=== PATIENT | male | born 1955 | race Caucasian/White ===

== ENCOUNTER → 2016-08-23 | Outpatient (CLI) | payer BC ==
--- NOTE | 2016-08-23 21:05 | DI ---
XR CXR 2VW PA/LAT,08/23/2016 11:36 AM: Clinical History: Asthma Previous Exam: November 16, 2014 Findings: PA and lateral views of the chest are obtained, and demonstrate infiltrates within the right middle l obe and the left lower lobe posteriorly. Skeletal structures are unremarkable. The cardiomediastinum is also unremarkable. Impression: Multifocal pneumonia within the right middle lobe and the left lower lobe.
== END ==
LOC: RAD 11:46
DX: J45.909 Unspecified asthma, uncomplicated (principal); J18.9 Pneumonia, unspecified organism; F17.210 Nicotine dependence, cigarettes, uncomplicated
CPT/HCPCS: 71020

== ENCOUNTER 2016-09-13 11:41 | Inpatient (IN) | payer BC ==
[2016-09-13] MEDS ORDERED: ONDANSETRON 4 MG/2 ML VIAL IVP PRN (12:11)
[2016-09-13] MEDS ORDERED: ACETAMINOPHEN 325 MG TABLET PO PRN (13:00)
[2016-09-13] MEDS: Levofloxacin 750mg (Premix) 750 MG in Dextrose 1 BAG IV SCH (14:01)
[2016-09-13] MEDS: NORMAL SALINE 10 ML SYRINGE FLUSH IVP PRN ×2 (14:01→23:08)
[2016-09-13] MEDS: OMEPRAZOLE 20 MG CAPSULE PO SCH ×2 (14:02→14:08)
[2016-09-13 14:17] LABS: BASOPHILS # (AUTO) 0 10*3/UL; BASOPHILS % (AUTO) 0 % (0-1); EOSINOPHILS % (AUTO) 0 % (0-8); HEMATOCRIT 45.3 % (42.0-52.0); HEMOGLOBIN 15.3 g/dL (14.0-18.0); IMM GRAN % (AUTO) 0.1 % (0-5); IMM GRAN# (AUTO) 0.01 10*3/UL; LYMPHOCYTES # (AUTO) 0.29 10*3/uL; LYMPHOCYTES % (AUTO) 4.3 % (10-50); MEAN CORPUSCULAR HEMOGLOBIN 29.9 PG (27-31); MEAN CORPUSCULAR HGB CONC 33.8 g/dL (33-37); MEAN PLATELET VOLUME 8.8 FL (7.4-12.2); MONOCYTES # (AUTO) 0.27 10*3/UL (0.3-0.8); NEUTROPHILS # (AUTO) 6.17 10*3/UL; NEUTROPHILS % (AUTO) 91.6 % (50-80); RDW COEFFICIENT OF VARIATION 14.2 % (11.5-14.5); RED BLOOD COUNT 5.11 10^6/uL (4.70-6.10); WHITE BLOOD COUNT 6.74 10^3/uL (4.8-10.8)
[2016-09-13 14:19] LABS: BLOOD UREA NITROGEN 16 mg/dL (7-22); BUN/CREATININE RATIO 17.77 (6-20); CALCIUM 9.8 mg/dL (8.7-10.7); CHLORIDE 98 meq/L (98-112); CREATININE 0.9 mg/dL (0.70-1.50); EST GLOMERULAR FILTRATION > 60 (>60 ml/min/1.73m(2)); GLUCOSE 140 mg/dL (78-110); POTASSIUM 4.5 meq/L (3.8-5.2); SODIUM 136 meq/L (135-145)
[2016-09-13 14:22] LABS: PLATELET MORPHOLOGY COMMENT NORMAL MORPHOLOGY (NORM)
[2016-09-13] MEDS: ALBUTEROL SULFATE 2.5 MG/3 ML NEB PRN ×2 (14:45→18:36)
[2016-09-13] MEDS ORDERED: Influenza 16-17 Vaccine(4yrs+) 45 MCG/0.5 ML SYRINGE IM ONE (15:05)
--- NOTE | 2016-09-13 15:12 | PDOC ---
History and Physical - History of Present Illness Date and Time of Service: 09/13/2016, 1510 Chief Complaint: Shortness of breath History of Present Illness: This is a very pleasant 61-year-old male who smokes intermittently, has GERD, hypothyroidism, and probable COPD. He has had shortness of breath since . He states that he saw Dr. Rowe a few times this month, and was placed on antibiotics (Ceftin) and steroids for a pneumonia and responded well in terms of improvements in his shortness of breath. However since titrating off of prednisone, the shortness breath has returned and is persistent. No chest pain. Has had intermittent fevers. Coughs and occasionally has a productive cough. He has never had anything like this happen before. He notes that he feels better when he is upright and sitting upright and has noted orthopnea at home and in fact often times now is going up to his recliner to sleep. He denies any prior history of congestive heart failure. He presented again to the clinic today, and it was felt that it would be best for the patient to be admitted due to persistent shortness of breath for workup. The patient reluctantly agreed to come to the hospital, short of breath on my examination, but is afebrile at this time. Past Medical History Medical History: 1. COPD. 2. GERD. 3. Hypothyroidism Surgical History: 1. Arthroscopic knee surgery. 2. Vasectomy Pertinent Family History: States his father of cancer. Past Social History: . Has children described as healthy, 2. Smokes intermittently. Does not drink alcohol often. Works for the [employer]. Tobacco Use: Former Smoker Substance Use Type: Marijuana Alcohol Use: Occasionally Medication / Allergies Home Medications: Home Medications Medication Instructions Recorded Confirmed Type Ascorbate Calcium [Vitamin C] 1 tab PO DAILY tab 07/01/13 10/20/14 History Multivitamin [Multivitamins] 1 tab PO DAILY tab 07/01/13 10/20/14 History Cholecalciferol (Vitamin D3) 2 tab PO QD #60 tab 09/20/14 10/20/14 Clinic [Vitamin D3] Sildenafil Citrate [Viagra] 1 tab PO DAILY PRN #10 tab 09/23/14 10/20/14 Clinic Budesonide/Formoterol Fumarate 2 puff INH BID #1 inh 03/01/15 Clinic [Symbicort] Albuterol Sulfate [Proair Hfa] 2 puff INH q 2 hours #1 inhaler 10/24/15 [facility] Levothyroxine Sodium 1 tab PO QD #90 tab 08/20/16 [facility] Omeprazole 1 cap PO QD #90 cap 08/20/16 [facility] predniSONE Tab [Deltasone Tab] 3 tab PO QD #100 tab 09/12/16 Clinic Allergies/Adverse Reactions: Allergies Allergy/AdvReac Type Severity Reaction Status Date / Time No Known Drug Allergies Allergy NOT Verified 09/13/16 13:11 APPLICABLE Review of Systems - Review of Systems All Systems: Reviewed & No Additional Complaints Except as Stated (I did a 12 point review of systems and it was negative other than that discussed in history present illness and that discussed below.) - Constitutional Constitutional: REPORTS: Fever/Chills - Respiratory Respiratory: REPORTS: Cough, Sputum - Cardiovascular Cardiovascular: REPORTS: Orthopnea - Neurological Neurologic: REPORTS: Headache (At any occasional headaches with the shortness breath here recently.) Exam - Vitals Vital Signs: Vital Signs Temperature 97.4 F Temperature Source Temporal Artery Scan Pulse Rate [Pulse Oximeter] 96 Respiratory Rate 22 Blood Pressure [Left Arm] 121/87 Pulse Ox 91 Oxygen Delivery Method Room Air Height 6 ft Weight 188 lb 6.4 oz - General General Appearance: POSITIVE: Cooperative, Mild Distress (Was breathing at a more labored rate. Had to sit up in chair to be comfortable.) - Head Head Exam: POSITIVE: Normal Inspection, Normocephalic, Atraumatic - Eye Eye Exam: POSITIVE: No Scleral Icterus - ENT ENT Exam: POSITIVE: Mucous Membranes Moist - Neck Neck Exam: POSITIVE: Normal Inspection, No Tenderness, No Thyromegaly - Respiratory Respiratory Exam: POSITIVE: Normal to Percussion and Palpation, Decreased Breath Sounds, Wheezes, Coarse Breath Sounds - Cardiovascular Cardiovascular Exam: POSITIVE: RRR, No Murmur, No Clicks, No Gallops, No Rubs, No JVD - GI/Abdominal GI/Abdominal Exam: POSITIVE: Normal Bowel Sounds, Non Tender, Non Distended, Soft - Rectal Rectal Exam: POSITIVE: Deferred - External Exam: POSITIVE: Deferred Exam: POSITIVE: Deferred - Extremities Extremities Exam: POSITIVE: No Edema Present, No Cyanosis Present, Clubbing Present (Clubbing in the digits is noted.) - Back Back Exam: POSITIVE: Normal Inspection, No CVA Tenderness - Neurological Neurological Exam: POSITIVE: Alert, Oriented x 3, No Facial Droop, Speech Intact / Clear, Moves All Extremities Equally - Psychiatric Psychiatric Exam: POSITIVE: Normal Affect, Normal Mood Results - Labs CBC and BMP: 09/13/16 14:08 09/13/16 14:08 Labs - Last 24 Hours: Laboratory Results 09/13/16 Range/Units 14:08 WBC 6.74 (4.8-10.8) 10^3/uL RBC 5.11 (4.70-6.10) 10^6/uL Hgb 15.3 (14.0-18.0) g/dL Hct 45.3 (42.0-52.0) % MCV 88.6 (80-90) FL MCH 29.9 (27-31) PG MCHC 33.8 (33-37) g/dL RDW Std Deviation 45.6 (39-50) fL RDW Coeff of Jeana 14.2 (11.5-14.5) % Plt Count 162 (140-350) 10*3/uL MPV 8.8 (7.4-12.2) FL Immature Gran % (Auto) 0.1 (0-5) % Neut % (Auto) 91.6 H (50-80) % Lymph % (Auto) 4.3 L (10-50) % [place] % (Auto) 4.0 L (5-15) % Eos % (Auto) 0 (0-8) % Baso % (Auto) 0 (0-1) % Immature Gran # (Auto) 0.01 10*3/UL Neut # (Auto) 6.17 10*3/UL Lymph # (Auto) 0.29 10*3/uL [place] # (Auto) 0.27 L (0.3-0.8) 10*3/UL Eos # (Auto) 0 10*3/UL Baso # (Auto) 0 10*3/UL WBC Morphology Comment Normal morphology (NORM) Plt Morphology Comment Normal morphology (NORM) RBC Morph Comment Normal morphology (NORM) Sodium 136 (135-145) meq/L Potassium 4.5 (3.8-5.2) meq/L Chloride 98 (98-112) meq/L Carbon Dioxide 24 (23-33) meq/L Anion Gap 14 (5-20) BUN 16 (7-22) mg/dL Creatinine 0.9 (0.70-1.50) mg/dL Estimated GFR > 60 (>60 ml/min/1.73m(2)) BUN/Creatinine Ratio 17.77 (6-20) Glucose 140 H (78-110) mg/dL Calculated Osmolality 284.0 (267-292) mOsm/kg Calcium 9.8 (8.7-10.7) mg/dL Lactic acid level is pending. - Imaging Status: Image Pending (I have ordered a CT scan of the chest to look for pulmonary emboli, although this may be less likely, also to redefine pneumonia and get a better picture of the extent of the COPD. An echocardiogram is pending.) Assessment and Plan - Patient Problems (1) Respiratory insufficiency Current Visit: Yes Status: Acute (2) Shortness of breath Current Visit: Yes Status: Acute (3) Hypothyroidism Current Visit: Yes Status: Acute Qualifiers: Hypothyroidism type: acquired Qualified Description: Acquired hypothyroidism Qualifier Code(s): (E03.9) Hypothyroidism, unspecified (4) GERD (gastroesophageal reflux disease) Current Visit: Yes Status: Acute - Assessment / Plan Additional Assessment/Plan Details: Admit the patient. Get CT scan to look for recurrent pneumonia, pulmonary emboli, and extent of COPD. Start antibiotics and steroids for now. Get echocardiogram with orthopnea. Also get EKG. Check labs. Oxygen if indicated. Albuterol via nebulizer instead of inhaler. Vaccines for influenza and Pneumovax if indicated. Smoking cessation education. Plan above discussed with patient. He agrees.
[2016-09-13] MEDS ORDERED: PNEUMOCOCCAL 23 VACCINE 25 MCG/0.5 ML VIAL IM SCH (15:15)
--- NOTE | 2016-09-13 16:55 | DI ---
CT ANGIOGRAM OF THE CHEST, 09/13/2016 12:14 PM : Clinical History: Pneumonia. Shortness of breath. Previous Exam: None at this facility. Scans are performed from the base of the neck to the lower lung bases following IV administration of 70 mL of Isovue 300. Proprietary automated bolus tracking software was not used to verify the timing of the injection. The base of the neck and thoracic inlet are normal. There are no abnormal axillary, supraclavicular, mediastinal, or hilar nodes. The heart is normal. The pulmonary arteries are normal. There is no pulm onary arterial hypertension. There is no evidence of pulmonary embolism. There are patchy infiltrates in the medial segment of the right middle lobe and in the lateral basal segment of the left lower lo be. No pleural effusions are noted. There are no pulmonary nodules. The adrenal glands, spleen and th e visualized portions of the liver and pancreas are normal. READIN. Normal CTA of the chest. There are no pulmonary emboli. 2. There are patchy infiltrates in the right middle lobe and the left lower lobe consistent with the diagnosis of pneumonia.
--- NOTE | 2016-09-13 17:20 | EKG ---
[address] [address] Measurements Intervals [place] Rate: 85 P: 60 VT: 134 QRS: 43 QRSD: 92 T: 60 QT: 352 QTc: 394 Interpretive Statements SINUS RHYTHM No previous ECG available for comparison Electronically Signed On 09-14-16 08:52:48 MST by Ryan Muir MD [id number]
[2016-09-13] MEDS: methylPREDNISolone 125 MG/2 ML VIAL IVP SCH ×2 (17:43→23:07)
[2016-09-13] MEDS: FLUTICASONE/SALMETEROL 500/50 UD INHALER INH SCH (18:39)
[2016-09-13] MEDS ORDERED: Non-Formulary Drug (Budesonide/Formoterol Fumarate [Symbicort] 2 PUFF) INH SCH (21:00)
[2016-09-14 05:03] LABS: BASOPHILS # (AUTO) 0 10*3/UL; BASOPHILS % (AUTO) 0 % (0-1); EOSINOPHILS % (AUTO) 0 % (0-8); HEMOGLOBIN 14.8 g/dL (14.0-18.0); IMM GRAN % (AUTO) 0 % (0-5); IMM GRAN# (AUTO) 0 10*3/UL; LYMPHOCYTES # (AUTO) 0.25 10*3/uL; LYMPHOCYTES % (AUTO) 5.5 % (10-50); MEAN CORPUSCULAR HEMOGLOBIN 29.5 PG (27-31); MEAN CORPUSCULAR HGB CONC 33.6 g/dL (33-37); MONOCYTES % (AUTO) 2.2 % (5-15); NEUTROPHILS # (AUTO) 4.21 10*3/UL; NEUTROPHILS % (AUTO) 92.3 % (50-80); RED BLOOD COUNT 5.02 10^6/uL (4.70-6.10); WHITE BLOOD COUNT 4.56 10^3/uL (4.8-10.8)
[2016-09-14 05:10] LABS: BLOOD UREA NITROGEN 16 mg/dL (7-22); CALCIUM 9.6 mg/dL (8.7-10.7); CHLORIDE 99 meq/L (98-112); CREATININE 0.8 mg/dL (0.70-1.50); EST GLOMERULAR FILTRATION > 60 (>60 ml/min/1.73m(2)); GLUCOSE 170 mg/dL (78-110); PLATELET MORPHOLOGY COMMENT NORMAL MORPHOLOGY (NORM); POTASSIUM 4.5 meq/L (3.8-5.2); SODIUM 137 meq/L (135-145)
[2016-09-14] MEDS: LEVOTHYROXINE 125 MCG TABLET PO SCH (05:31)
[2016-09-14] MEDS: NORMAL SALINE 10 ML SYRINGE FLUSH IVP PRN ×2 (05:31→23:13)
[2016-09-14] MEDS: methylPREDNISolone 125 MG/2 ML VIAL IVP SCH ×4 (05:31→23:12)
[2016-09-14] MEDS: ALBUTEROL SULFATE 2.5 MG/3 ML NEB PRN ×4 (06:25→18:31)
[2016-09-14] MEDS: FLUTICASONE/SALMETEROL 500/50 UD INHALER INH SCH ×2 (06:26→18:30)
[2016-09-14] MEDS: ENOXAPARIN SODIUM 40 MG/0.4 ML SYRINGE SUBCUT SCH (08:18)
[2016-09-14] MEDS: OMEPRAZOLE 20 MG CAPSULE PO SCH (08:19)
[2016-09-14] MEDS: Levofloxacin 750mg (Premix) 750 MG in Dextrose 1 BAG IV SCH (14:05)
--- NOTE | 2016-09-14 14:10 | PDOC(PROG) ---
Interval History: Doing well appears and she is still coughing very tight with audible wheezes Objective : Data - Labs CBC and BMP: 09/14/16 04:36 09/14/16 04:36 Labs - Last 24 Hours: Laboratory Results 09/13/16 09/13/16 09/14/16 Range/Units 14:08 17:19 04:36 WBC 6.74 4.56 L (4.8-10.8) 10^3/uL RBC 5.11 5.02 (4.70-6.10) 10^6/uL Hgb 15.3 14.8 (14.0-18.0) g/dL Hct 45.3 44.0 (42.0-52.0) % MCV 88.6 87.6 (80-90) FL MCH 29.9 29.5 (27-31) PG MCHC 33.8 33.6 (33-37) g/dL RDW Std Deviation 45.6 44.5 (39-50) fL RDW Coeff of Jeana 14.2 14.0 (11.5-14.5) % Plt Count 162 163 (140-350) 10*3/uL MPV 8.8 9.0 (7.4-12.2) FL Immature Gran % (Auto) 0.1 0 (0-5) % Neut % (Auto) 91.6 H 92.3 H (50-80) % Lymph % (Auto) 4.3 L 5.5 L (10-50) % [place] % (Auto) 4.0 L 2.2 L (5-15) % Eos % (Auto) 0 0 (0-8) % Baso % (Auto) 0 0 (0-1) % Immature Gran # (Auto) 0.01 0 10*3/UL Neut # (Auto) 6.17 4.21 10*3/UL Lymph # (Auto) 0.29 0.25 10*3/uL [place] # (Auto) 0.27 L 0.10 L (0.3-0.8) 10*3/UL Eos # (Auto) 0 0 10*3/UL Baso # (Auto) 0 0 10*3/UL WBC Morphology Comment Normal morphology Normal morphology (NORM) Plt Morphology Comment Normal morphology Normal morphology (NORM) RBC Morph Comment Normal morphology Normal morphology (NORM) Sodium 136 137 (135-145) meq/L Potassium 4.5 4.5 (3.8-5.2) meq/L Chloride 98 99 (98-112) meq/L Carbon Dioxide 24 28 (23-33) meq/L Anion Gap 14 10 (5-20) BUN 16 16 (7-22) mg/dL Creatinine 0.9 0.8 (0.70-1.50) mg/dL Estimated GFR > 60 > 60 (>60 ml/min/1.73m(2)) BUN/Creatinine Ratio 17.77 20.00 (6-20) Glucose 140 H 170 H (78-110) mg/dL Calculated Osmolality 284.0 288.0 (267-292) mOsm/kg Lactic Acid 1.5 (0.70-2.10) MMOL/L Calcium 9.8 9.6 (8.7-10.7) mg/dL Objective : Exam - General General Appearance: Cooperative - Respiratory Respiratory Exam: Decreased Breath Sounds, Wheezes, Coarse Breath Sounds - Cardiovascular Cardiovascular Exam: RRR, No Murmur, No Clicks, No Gallops - Extremities Extremities Exam: No Clubbing Present, No Edema Present - Neurological Neurological Exam: Alert, Oriented x 3 Assessment and Plan - Patient Problems (1) GERD (gastroesophageal reflux disease) Current Visit: Yes Status: Acute (2) Hypothyroidism Current Visit: Yes Status: Acute Qualifiers: Hypothyroidism type: acquired Qualified Description: Acquired hypothyroidism Qualifier Code(s): (E03.9) Hypothyroidism, unspecified (3) Pneumonia Current Visit: Yes Status: Acute (4) COPD exacerbation Current Visit: Yes Status: Acute - Assessment / Plan Additional Assessment/Plan Details: #1 pneumonia/with COPD exacerbationcontinue IV Levaquin and IV steroids dual nebs and inhalers patient therefore needs to be in the hospital for the next 2 days still very tight and audible wheezing no PE. Echo is still pending for his orthopnea we'll check troponins #2 hypothyroidism continue replacement #3 and hydration continue IV fluids
[2016-09-15] MEDS: methylPREDNISolone 125 MG/2 ML VIAL IVP SCH ×4 (05:36→23:48)
[2016-09-15] MEDS: LEVOTHYROXINE 125 MCG TABLET PO SCH (05:36)
[2016-09-15 05:52] LABS: BASOPHILS # (AUTO) 0 10*3/UL; BASOPHILS % (AUTO) 0 % (0-1); EOSINOPHILS % (AUTO) 0 % (0-8); HEMOGLOBIN 14.4 g/dL (14.0-18.0); IMM GRAN % (AUTO) 0.1 % (0-5); IMM GRAN# (AUTO) 0.01 10*3/UL; LYMPHOCYTES # (AUTO) 0.32 10*3/uL; LYMPHOCYTES % (AUTO) 2.8 % (10-50); MEAN CORPUSCULAR HEMOGLOBIN 30.8 PG (27-31); MEAN CORPUSCULAR HGB CONC 34.3 g/dL (33-37); MONOCYTES # (AUTO) 0.51 10*3/UL (0.3-0.8); MONOCYTES % (AUTO) 4.4 % (5-15); NEUTROPHILS # (AUTO) 10.77 10*3/UL; NEUTROPHILS % (AUTO) 92.7 % (50-80); RDW COEFFICIENT OF VARIATION 14.1 % (11.5-14.5); RED BLOOD COUNT 4.67 10^6/uL (4.70-6.10); WHITE BLOOD COUNT 11.61 10^3/uL (4.8-10.8)
[2016-09-15 05:59] LABS: ASPARTATE AMINO TRANSFERASE 24 IU/L (21-57); BILIRUBIN,TOTAL 0.3 mg/dL (0.3-1.2); BLOOD UREA NITROGEN 19 mg/dL (7-22); BUN/CREATININE RATIO 23.75 (6-20); CALCIUM 9.7 mg/dL (8.7-10.7); CHLORIDE 100 meq/L (98-112); CREATININE 0.8 mg/dL (0.70-1.50); EST GLOMERULAR FILTRATION > 60 (>60 ml/min/1.73m(2)); GLUCOSE 135 mg/dL (78-110); POTASSIUM 4.5 meq/L (3.8-5.2); SODIUM 138 meq/L (135-145); TOTAL PROTEIN 6.2 g/dL (6.1-8.0)
[2016-09-15] MEDS: ALBUTEROL SULFATE 2.5 MG/3 ML NEB PRN ×4 (06:21→18:37)
[2016-09-15] MEDS: FLUTICASONE/SALMETEROL 500/50 UD INHALER INH SCH ×2 (06:22→18:37)
[2016-09-15 06:30] LABS: PLATELET MORPHOLOGY COMMENT NORMAL MORPHOLOGY (NORM)
[2016-09-15] MEDS: OMEPRAZOLE 20 MG CAPSULE PO SCH (06:31)
[2016-09-15] MEDS: ENOXAPARIN SODIUM 40 MG/0.4 ML SYRINGE SUBCUT SCH (08:31)
[2016-09-15] MEDS ORDERED: LORazepam 2 MG/1 ML VIAL IVP PRN (09:01)
--- NOTE | 2016-09-15 11:23 | PDOC(PROG) ---
Interval History: There were little better today less wheezing less tightness Objective : Data - Labs CBC and BMP: 09/15/16 05:16 09/15/16 05:16 Labs - Last 24 Hours: Laboratory Results 09/14/16 09/15/16 09/15/16 Range/Units 14:27 05:16 10:22 WBC 11.61 H (4.8-10.8) 10^3/uL RBC 4.67 L (4.70-6.10) 10^6/uL Hgb 14.4 (14.0-18.0) g/dL Hct 42.0 (42.0-52.0) % MCV 89.9 (80-90) FL MCH 30.8 (27-31) PG MCHC 34.3 (33-37) g/dL RDW Std Deviation 44.9 (39-50) fL RDW Coeff of Jeana 14.1 (11.5-14.5) % Plt Count 181 (140-350) 10*3/uL MPV 9.0 (7.4-12.2) FL Immature Gran % (Auto) 0.1 (0-5) % Neut % (Auto) 92.7 H (50-80) % Lymph % (Auto) 2.8 L (10-50) % [place] % (Auto) 4.4 L (5-15) % Eos % (Auto) 0 (0-8) % Baso % (Auto) 0 (0-1) % Immature Gran # (Auto) 0.01 10*3/UL Neut # (Auto) 10.77 10*3/UL Lymph # (Auto) 0.32 10*3/uL [place] # (Auto) 0.51 (0.3-0.8) 10*3/UL Eos # (Auto) 0 10*3/UL Baso # (Auto) 0 10*3/UL WBC Morphology Comment Normal morphology (NORM) Plt Morphology Comment Normal morphology (NORM) RBC Morph Comment Normal morphology (NORM) VBG pH 7.46 H (7.32-7.42) VBG pCO2 31 L (45-55) mmHg VBG HCO3 22 (22-26) mmol/L VBG Base Excess -1 (-2-2) MMOL/L Sodium 138 (135-145) meq/L Potassium 4.5 (3.8-5.2) meq/L Chloride 100 (98-112) meq/L Carbon Dioxide 26 (23-33) meq/L Anion Gap 12 (5-20) BUN 19 (7-22) mg/dL Creatinine 0.8 (0.70-1.50) mg/dL Estimated GFR > 60 (>60 ml/min/1.73m(2)) BUN/Creatinine Ratio 23.75 H (6-20) Glucose 135 H (78-110) mg/dL Calculated Osmolality 289.0 (267-292) mOsm/kg Calcium 9.7 (8.7-10.7) mg/dL Total Bilirubin 0.3 (0.3-1.2) mg/dL AST 24 (21-57) IU/L ALT 33 (21-72) IU/L Alkaline Phosphatase 70 (38-126) IU/L Troponin I < 0.012 (< 0.040) ng/mL Total Protein 6.2 (6.1-8.0) g/dL Albumin 3.6 (3.5-4.8) g/dL Globulin 2.6 (2.50-4.10) g/dL Albumin/Globulin Ratio 1.30 (1.3-2.0) mg/g Objective : Exam - General General Appearance: Cooperative - Head Head Exam: Normal Inspection - Respiratory Additional Respiratory Exam Details: Less wheezing less tightness better air movement still coarse lung sounds bilaterally - Cardiovascular Cardiovascular Exam: RRR, No Murmur, No Clicks - GI/Abdominal GI/Abdominal Exam: Normal Bowel Sounds, Non Tender, Soft - Extremities Extremities Exam: No Clubbing Present, No Edema Present Assessment and Plan - Patient Problems (1) GERD (gastroesophageal reflux disease) Current Visit: Yes Status: Acute (2) Hypothyroidism Current Visit: Yes Status: Acute Qualifiers: Hypothyroidism type: acquired Qualified Description: Acquired hypothyroidism Qualifier Code(s): (E03.9) Hypothyroidism, unspecified (3) Pneumonia Current Visit: Yes Status: Acute (4) COPD exacerbation Current Visit: Yes Status: Acute - Assessment / Plan Additional Assessment/Plan Details: #1 pneumonia/with COPD exacerbationcontinue IV Levaquin and IV steroids dual nebs and inhalers patient therefore needs to be in the hospital for the next 2- 3 days patient still very short of breath VBG within normal limits. I had a cough from Dr. Stratton about patient's echo which she sees no acute findings waiting for final result #2 hypothyroidism continue replacement #3 and hydration continue IV fluids
[2016-09-15] MEDS: Levofloxacin 750mg (Premix) 750 MG in Dextrose 1 BAG IV SCH (13:59)
[2016-09-15] MEDS: NORMAL SALINE 10 ML SYRINGE FLUSH IVP PRN (17:15)
[2016-09-16 05:30] LABS: BASOPHILS # (AUTO) 0.01 10*3/UL; BASOPHILS % (AUTO) 0.1 % (0-1); EOSINOPHILS % (AUTO) 0 % (0-8); HEMATOCRIT 40.5 % (42.0-52.0); HEMOGLOBIN 13.7 g/dL (14.0-18.0); IMM GRAN % (AUTO) 0.2 % (0-5); IMM GRAN# (AUTO) 0.03 10*3/UL; LYMPHOCYTES # (AUTO) 0.38 10*3/uL; LYMPHOCYTES % (AUTO) 2.7 % (10-50); MEAN CORPUSCULAR HEMOGLOBIN 29.8 PG (27-31); MEAN CORPUSCULAR HGB CONC 33.8 g/dL (33-37); MEAN PLATELET VOLUME 8.8 FL (7.4-12.2); MONOCYTES # (AUTO) 0.32 10*3/UL (0.3-0.8); MONOCYTES % (AUTO) 2.3 % (5-15); NEUTROPHILS # (AUTO) 13.43 10*3/UL; NEUTROPHILS % (AUTO) 94.7 % (50-80); RDW COEFFICIENT OF VARIATION 14.1 % (11.5-14.5); RED BLOOD COUNT 4.59 10^6/uL (4.70-6.10); WHITE BLOOD COUNT 14.17 10^3/uL (4.8-10.8)
[2016-09-16 05:38] LABS: ASPARTATE AMINO TRANSFERASE 28 IU/L (21-57); BILIRUBIN,TOTAL 0.3 mg/dL (0.3-1.2); BLOOD UREA NITROGEN 20 mg/dL (7-22); CALCIUM 9.1 mg/dL (8.7-10.7); CHLORIDE 102 meq/L (98-112); CREATININE 0.8 mg/dL (0.70-1.50); EST GLOMERULAR FILTRATION > 60 (>60 ml/min/1.73m(2)); GLUCOSE 153 mg/dL (78-110); SODIUM 137 meq/L (135-145); TOTAL PROTEIN 5.8 g/dL (6.1-8.0)
[2016-09-16 05:43] LABS: PLATELET MORPHOLOGY COMMENT NORMAL MORPHOLOGY (NORM)
[2016-09-16] MEDS: methylPREDNISolone 125 MG/2 ML VIAL IVP SCH ×2 (05:46→11:40)
[2016-09-16] MEDS: LEVOTHYROXINE 125 MCG TABLET PO SCH (05:46)
[2016-09-16] MEDS: ALBUTEROL SULFATE 2.5 MG/3 ML NEB PRN ×4 (06:50→19:24)
[2016-09-16] MEDS: FLUTICASONE/SALMETEROL 500/50 UD INHALER INH SCH ×2 (06:56→19:25)
[2016-09-16] MEDS: OMEPRAZOLE 20 MG CAPSULE PO SCH (07:23)
[2016-09-16] MEDS: ENOXAPARIN SODIUM 40 MG/0.4 ML SYRINGE SUBCUT SCH (08:39)
[2016-09-16] MEDS: NORMAL SALINE 10 ML SYRINGE FLUSH IVP PRN (11:40)
--- NOTE | 2016-09-16 12:14 | DI ---
HISTORY: Follow up for worsening pneumonia. COMPARISON: 09/13/2016. TECHNIQUE: Multiple CT images were obtained through the chest without contrast. FINDINGS: Examination demonstrates stable multifocal air space disease, when compared to the previou s examination. IMPRESSION: 1. No significant change from prior evaluation. NOTIFICATION: The above report was sent to Nicol Dorado on 09/16/2016 at 02:22 PM EST.
--- NOTE | 2016-09-16 12:31 | PDOC(PROG) ---
Interval History: Doing much better today less wheezing he is not working as hard to breathe repeat CAT scan no change and no empyema Objective : Data - Labs CBC and BMP: 09/16/16 04:45 09/16/16 04:45 Labs - Last 24 Hours: Laboratory Results 09/16/16 Range/Units 04:45 WBC 14.17 H (4.8-10.8) 10^3/uL RBC 4.59 L (4.70-6.10) 10^6/uL Hgb 13.7 L (14.0-18.0) g/dL Hct 40.5 L (42.0-52.0) % MCV 88.2 (80-90) FL MCH 29.8 (27-31) PG MCHC 33.8 (33-37) g/dL RDW Std Deviation 44.6 (39-50) fL RDW Coeff of Jeana 14.1 (11.5-14.5) % Plt Count 181 (140-350) 10*3/uL MPV 8.8 (7.4-12.2) FL Immature Gran % (Auto) 0.2 (0-5) % Neut % (Auto) 94.7 H (50-80) % Lymph % (Auto) 2.7 L (10-50) % [place] % (Auto) 2.3 L (5-15) % Eos % (Auto) 0 (0-8) % Baso % (Auto) 0.1 (0-1) % Immature Gran # (Auto) 0.03 10*3/UL Neut # (Auto) 13.43 10*3/UL Lymph # (Auto) 0.38 10*3/uL [place] # (Auto) 0.32 (0.3-0.8) 10*3/UL Eos # (Auto) 0 10*3/UL Baso # (Auto) 0.01 10*3/UL WBC Morphology Comment Normal morphology (NORM) Plt Morphology Comment Normal morphology (NORM) RBC Morph Comment Normal morphology (NORM) Sodium 137 (135-145) meq/L Potassium 4.0 (3.8-5.2) meq/L Chloride 102 (98-112) meq/L Carbon Dioxide 25 (23-33) meq/L Anion Gap 10 (5-20) BUN 20 (7-22) mg/dL Creatinine 0.8 (0.70-1.50) mg/dL Estimated GFR > 60 (>60 ml/min/1.73m(2)) BUN/Creatinine Ratio 25.00 H (6-20) Glucose 153 H (78-110) mg/dL Calculated Osmolality 289.0 (267-292) mOsm/kg Calcium 9.1 (8.7-10.7) mg/dL Total Bilirubin 0.3 (0.3-1.2) mg/dL AST 28 (21-57) IU/L ALT 34 (21-72) IU/L Alkaline Phosphatase 71 (38-126) IU/L Total Protein 5.8 L (6.1-8.0) g/dL Albumin 3.3 L (3.5-4.8) g/dL Globulin 2.5 (2.50-4.10) g/dL Albumin/Globulin Ratio 1.30 (1.3-2.0) mg/g Objective : Exam - General General Appearance: Cooperative - Respiratory Additional Respiratory Exam Details: Still some expiratory wheezes at the bases but very mild and much improved compared to yesterday breath sounds are not his courses yesterday - Cardiovascular Cardiovascular Exam: RRR, No Murmur, No Clicks - GI/Abdominal GI/Abdominal Exam: Non Tender, Non Distended, Soft - Extremities Extremities Exam: No Clubbing Present, No Edema Present Assessment and Plan - Patient Problems (1) GERD (gastroesophageal reflux disease) Current Visit: Yes Status: Acute (2) Hypothyroidism Current Visit: Yes Status: Acute Qualifiers: Hypothyroidism type: acquired Qualified Description: Acquired hypothyroidism Qualifier Code(s): (E03.9) Hypothyroidism, unspecified (3) Pneumonia Current Visit: Yes Status: Acute (4) COPD exacerbation Current Visit: Yes Status: Acute - Assessment / Plan Additional Assessment/Plan Details: Pneumonia multilobar continue Levaquin 750 daily patient's show some improvement so not ready to be discharged patient tachycardic still some expiratory wheezing COPD exacerbation I will stop IV steroids start 30 mg prednisone Hypothyroidism continue replacement
[2016-09-16] MEDS: Levofloxacin 750mg (Premix) 750 MG in Dextrose 1 BAG IV SCH (13:59)
[2016-09-17 06:26] LABS: BASOPHILS # (AUTO) 0 10*3/UL; BASOPHILS % (AUTO) 0 % (0-1); EOSINOPHILS % (AUTO) 0 % (0-8); HEMATOCRIT 40.1 % (42.0-52.0); HEMOGLOBIN 12.9 g/dL (14.0-18.0); IMM GRAN % (AUTO) 0.4 % (0-5); IMM GRAN# (AUTO) 0.04 10*3/UL; LYMPHOCYTES # (AUTO) 0.49 10*3/uL; LYMPHOCYTES % (AUTO) 4.4 % (10-50); MEAN CORPUSCULAR HEMOGLOBIN 29.1 PG (27-31); MEAN CORPUSCULAR HGB CONC 32.2 g/dL (33-37); MEAN PLATELET VOLUME 8.6 FL (7.4-12.2); MONOCYTES # (AUTO) 0.55 10*3/UL (0.3-0.8); MONOCYTES % (AUTO) 4.9 % (5-15); NEUTROPHILS # (AUTO) 10.15 10*3/UL; NEUTROPHILS % (AUTO) 90.3 % (50-80); RDW COEFFICIENT OF VARIATION 14.5 % (11.5-14.5); RED BLOOD COUNT 4.43 10^6/uL (4.70-6.10); WHITE BLOOD COUNT 11.23 10^3/uL (4.8-10.8)
[2016-09-17 06:35] LABS: ASPARTATE AMINO TRANSFERASE 27 IU/L (21-57); BILIRUBIN,TOTAL 0.2 mg/dL (0.3-1.2); BLOOD UREA NITROGEN 18 mg/dL (7-22); CALCIUM 8.8 mg/dL (8.7-10.7); CHLORIDE 104 meq/L (98-112); CREATININE 0.8 mg/dL (0.70-1.50); EST GLOMERULAR FILTRATION > 60 (>60 ml/min/1.73m(2)); GLUCOSE 99 mg/dL (78-110); POTASSIUM 4.1 meq/L (3.8-5.2); SODIUM 141 meq/L (135-145); TOTAL PROTEIN 5.4 g/dL (6.1-8.0)
[2016-09-17] MEDS: FLUTICASONE/SALMETEROL 500/50 UD INHALER INH SCH ×2 (06:57→19:20)
[2016-09-17] MEDS: ALBUTEROL SULFATE 2.5 MG/3 ML NEB PRN ×4 (06:57→19:19)
[2016-09-17 07:14] LABS: PLATELET MORPHOLOGY COMMENT NORMAL MORPHOLOGY (NORM)
[2016-09-17] MEDS: OMEPRAZOLE 20 MG CAPSULE PO SCH (07:24)
[2016-09-17] MEDS: LEVOTHYROXINE 125 MCG TABLET PO SCH (07:25)
[2016-09-17] MEDS: ENOXAPARIN SODIUM 40 MG/0.4 ML SYRINGE SUBCUT SCH (09:20)
--- NOTE | 2016-09-17 11:04 | PDOC(PROG) ---
Interval History: No complaints this morning feeling better during is the first part of a stress test when he was laying down he had some shortness of breath which improved when he stood up no other complaints Objective : Data - Labs CBC and BMP: 09/17/16 05:25 09/17/16 05:25 Labs - Last 24 Hours: Laboratory Results 09/17/16 Range/Units 05:25 WBC 11.23 H (4.8-10.8) 10^3/uL RBC 4.43 L (4.70-6.10) 10^6/uL Hgb 12.9 L (14.0-18.0) g/dL Hct 40.1 L (42.0-52.0) % MCV 90.5 H (80-90) FL MCH 29.1 (27-31) PG MCHC 32.2 L (33-37) g/dL RDW Std Deviation 45.8 (39-50) fL RDW Coeff of Jeana 14.5 (11.5-14.5) % Plt Count 175 (140-350) 10*3/uL MPV 8.6 (7.4-12.2) FL Immature Gran % (Auto) 0.4 (0-5) % Neut % (Auto) 90.3 H (50-80) % Lymph % (Auto) 4.4 L (10-50) % [place] % (Auto) 4.9 L (5-15) % Eos % (Auto) 0 (0-8) % Baso % (Auto) 0 (0-1) % Immature Gran # (Auto) 0.04 10*3/UL Neut # (Auto) 10.15 10*3/UL Lymph # (Auto) 0.49 10*3/uL [place] # (Auto) 0.55 (0.3-0.8) 10*3/UL Eos # (Auto) 0 10*3/UL Baso # (Auto) 0 10*3/UL WBC Morphology Comment See comments (NORM) Plt Morphology Comment Normal morphology (NORM) RBC Morph Comment Normal morphology (NORM) Sodium 141 (135-145) meq/L Potassium 4.1 (3.8-5.2) meq/L Chloride 104 (98-112) meq/L Carbon Dioxide 28 (23-33) meq/L Anion Gap 9 (5-20) BUN 18 (7-22) mg/dL Creatinine 0.8 (0.70-1.50) mg/dL Estimated GFR > 60 (>60 ml/min/1.73m(2)) BUN/Creatinine Ratio 22.50 H (6-20) Glucose 99 (78-110) mg/dL Calculated Osmolality 293.0 H (267-292) mOsm/kg Calcium 8.8 (8.7-10.7) mg/dL Total Bilirubin 0.2 L (0.3-1.2) mg/dL AST 27 (21-57) IU/L ALT 44 (21-72) IU/L Alkaline Phosphatase 61 (38-126) IU/L Total Protein 5.4 L (6.1-8.0) g/dL Albumin 2.9 L (3.5-4.8) g/dL Globulin 2.5 (2.50-4.10) g/dL Albumin/Globulin Ratio 1.10 L (1.3-2.0) mg/g Objective : Exam - General General Appearance: Cooperative - Respiratory Additional Respiratory Exam Details: No wheezes improved today good air movement - Cardiovascular Cardiovascular Exam: RRR, No Murmur, No Clicks - GI/Abdominal GI/Abdominal Exam: Normal Bowel Sounds, Non Tender, Non Distended, Soft - Extremities Extremities Exam: Normal Capillary Refill, No Clubbing Present, No Edema Present Assessment and Plan - Patient Problems (1) GERD (gastroesophageal reflux disease) Current Visit: Yes Status: Acute (2) Hypothyroidism Current Visit: Yes Status: Acute Qualifiers: Hypothyroidism type: acquired Qualified Description: Acquired hypothyroidism Qualifier Code(s): (E03.9) Hypothyroidism, unspecified (3) Pneumonia Current Visit: Yes Status: Acute (4) COPD exacerbation Current Visit: Yes Status: Acute (5) Orthopnea Current Visit: Yes Status: Acute - Assessment / Plan Additional Assessment/Plan Details: Multilobar pneumoniaimproving repeat CT scan showed the no change from previous no empyema WBC is improving as well Anxiety Ativan when necessary Orthopnea check BMP order a nuclear medicine stress test now that he is improved from his pneumonia standpoint
[2016-09-17] MEDS: Levofloxacin 750mg (Premix) 750 MG in Dextrose 1 BAG IV SCH (13:55)
[2016-09-18 05:55] LABS: BASOPHILS # (AUTO) 0.01 10*3/UL; BASOPHILS % (AUTO) 0.2 % (0-1); EOSINOPHILS % (AUTO) 0.7 % (0-8); HEMATOCRIT 40.9 % (42.0-52.0); HEMOGLOBIN 13.1 g/dL (14.0-18.0); IMM GRAN % (AUTO) 0.5 % (0-5); IMM GRAN# (AUTO) 0.03 10*3/UL; LYMPHOCYTES # (AUTO) 0.64 10*3/uL; LYMPHOCYTES % (AUTO) 10.6 % (10-50); MEAN CORPUSCULAR HEMOGLOBIN 29.3 PG (27-31); MEAN PLATELET VOLUME 8.7 FL (7.4-12.2); MONOCYTES # (AUTO) 0.44 10*3/UL (0.3-0.8); MONOCYTES % (AUTO) 7.3 % (5-15); NEUTROPHILS # (AUTO) 4.88 10*3/UL; NEUTROPHILS % (AUTO) 80.7 % (50-80); RDW COEFFICIENT OF VARIATION 14.7 % (11.5-14.5); RED BLOOD COUNT 4.47 10^6/uL (4.70-6.10); WHITE BLOOD COUNT 6.04 10^3/uL (4.8-10.8)
[2016-09-18 05:59] LABS: PLATELET MORPHOLOGY COMMENT NORMAL MORPHOLOGY (NORM)
[2016-09-18 06:10] LABS: ASPARTATE AMINO TRANSFERASE 26 IU/L (21-57); BILIRUBIN,TOTAL 0.3 mg/dL (0.3-1.2); BLOOD UREA NITROGEN 22 mg/dL (7-22); CALCIUM 8.6 mg/dL (8.7-10.7); CHLORIDE 104 meq/L (98-112); CREATININE 0.8 mg/dL (0.70-1.50); EST GLOMERULAR FILTRATION > 60 (>60 ml/min/1.73m(2)); GLUCOSE 86 mg/dL (78-110); POTASSIUM 4.2 meq/L (3.8-5.2); SODIUM 140 meq/L (135-145); TOTAL PROTEIN 5.2 g/dL (6.1-8.0)
[2016-09-18] MEDS: FLUTICASONE/SALMETEROL 500/50 UD INHALER INH SCH ×2 (06:46→19:04)
[2016-09-18] MEDS: ALBUTEROL SULFATE 2.5 MG/3 ML NEB PRN ×5 (06:46→19:02)
[2016-09-18] MEDS: OMEPRAZOLE 20 MG CAPSULE PO SCH (06:52)
[2016-09-18] MEDS: LEVOTHYROXINE 125 MCG TABLET PO SCH (06:52)
[2016-09-18] MEDS: ENOXAPARIN SODIUM 40 MG/0.4 ML SYRINGE SUBCUT SCH (09:07)
--- NOTE | 2016-09-18 09:58 | STRESSTEST ---
[facility] Interpretive Statements This is a 61 YO with pneumonia, COPD, and orthopnea, DEspite treatment of his pneumonia, orthopnea has persisted. Sneha scan stress test ordered for more evaluation. Has risk factors of HTN and tobacco abuse. Resting EKG is sinus bradycardia. Exercised doing Sneha scan stress test. Had shortness of breath. Plan: Resting images done yesterday, images from resting and stress test to be compiled for radiology read on study images. [email or web address]
[2016-09-18 12:10] LABS: ABG BASE EXCESS 4 MMOL/L (-2-2); ABG HCO3 26 (22-26); ABG OXYGEN SATURATION 95 % (90-100); ABG PH 7.57 (7.35-7.45); ABG TCO2 27 MMOL/L (23-27); ALLEN TEST Y; COLLECTION SITE R RAD
[2016-09-18 12:12] LABS: FIO2/O2 1.5 N/C
[2016-09-18] MEDS: methylPREDNISolone 125 MG/2 ML VIAL IVP SCH ×2 (13:49→21:08)
[2016-09-18] MEDS: NORMAL SALINE 10 ML SYRINGE FLUSH IVP PRN (13:49)
--- NOTE | 2016-09-18 16:28 | DI ---
2 DAY LEXISCAN STRESS & REST MYOCARDIAL PERFUSION SCANS, 09/17/2016-09/18/2016: Clinical History: Orthopnea Previous Exam: None at this facility. Monitoring Physician: Dr. Christiano Palacio. Dose: Stress dose: 32 mCi on 09/18/2016. Rest dose: 35 mCi on 09/17/2016. Quantitative Analysis: [employer] program with low dose limited CT chest scan attenuation correctio n. Exam Quality: Very good to excellent. Rejected Beats: Stress = 13%; Rest = 4%. HR: Stress = 74-92 b/ m; Rest = 79-85 b/m. Left ventricular chamber sizes are normal at stress and rest. Transient ischemic dilatation ratio is 1.05 (normal Cuauhtemoc TID <= 1.22; normal Lexiscan TID <= 1.33). Stress LVEF: 80%; rest LVEF: 74%. The a ttenuated and non-attenuated corrected scans show normal stress and rest myocardial perfusion, wall m otion, and thickening. Limited CT scans of the heart show no coronary artery calcifications. There ar e patchy densities in the right lower lobe and the left costophrenic angle and these were present on the previous CT scans of the chest from 09/14/2016, and 09/16/2016. No significant coronary artery calc ifications are identified. Readin. Normal stress and rest left ventricular chamber size. Transient ischemic dilatation ratio is norm al at 1.05. 2. Normal stress and rest LVEF values of 80%, and 74%, respectively. 3. Normal stress and rest myocardial perfusion, wall motion, and thickening. 4. No coronary artery calcifications are identified. There are patchy densities in the left costophr enic anal and in the right lower lobe in these were identified on previous CT scans from 09/14/2016, a nd 09/16/2016.
--- NOTE | 2016-09-18 18:42 | PDOC(PROG) ---
Date and Time of Service: 09/18/2016, 1840 Interval History: No chest pain. Still feel short of breath. Anxious. No nausea or vomiting. Stress test was negative. Objective : Data - Labs CBC and BMP: 09/18/16 05:00 09/18/16 05:00 Labs - Last 24 Hours: Laboratory Results 09/18/16 09/18/16 Range/Units 05:00 11:56 WBC 6.04 (4.8-10.8) 10^3/uL RBC 4.47 L (4.70-6.10) 10^6/uL Hgb 13.1 L (14.0-18.0) g/dL Hct 40.9 L (42.0-52.0) % MCV 91.5 H (80-90) FL MCH 29.3 (27-31) PG MCHC 32.0 L (33-37) g/dL RDW Std Deviation 48.3 (39-50) fL RDW Coeff of Jeana 14.7 H (11.5-14.5) % Plt Count 160 (140-350) 10*3/uL MPV 8.7 (7.4-12.2) FL Immature Gran % (Auto) 0.5 (0-5) % Neut % (Auto) 80.7 H (50-80) % Lymph % (Auto) 10.6 (10-50) % [place] % (Auto) 7.3 (5-15) % Eos % (Auto) 0.7 (0-8) % Baso % (Auto) 0.2 (0-1) % Immature Gran # (Auto) 0.03 10*3/UL Neut # (Auto) 4.88 10*3/UL Lymph # (Auto) 0.64 10*3/uL [place] # (Auto) 0.44 (0.3-0.8) 10*3/UL Eos # (Auto) 0.04 10*3/UL Baso # (Auto) 0.01 10*3/UL WBC Morphology Comment Normal morphology (NORM) Plt Morphology Comment Normal morphology (NORM) RBC Morph Comment Normal morphology (NORM) ABG pH 7.57 H (7.35-7.45) ABG pCO2 29 L (34-38) MMHG ABG pO2 65 (65-75) MMHG ABG HCO3 26 (22-26) ABG Total CO2 27 (23-27) MMOL/L ABG O2 Saturation 95 (90-100) % ABG Base Excess 4 H (-2-2) MMOL/L Tim Test Y FiO2 1.5 n/c Sodium 140 (135-145) meq/L Potassium 4.2 (3.8-5.2) meq/L Chloride 104 (98-112) meq/L Carbon Dioxide 31 (23-33) meq/L Anion Gap 5 (5-20) BUN 22 (7-22) mg/dL Creatinine 0.8 (0.70-1.50) mg/dL Estimated GFR > 60 (>60 ml/min/1.73m(2)) BUN/Creatinine Ratio 27.50 H (6-20) Glucose 86 (78-110) mg/dL Calculated Osmolality 291.0 (267-292) mOsm/kg Calcium 8.6 L (8.7-10.7) mg/dL Total Bilirubin 0.3 (0.3-1.2) mg/dL AST 26 (21-57) IU/L ALT 44 (21-72) IU/L Alkaline Phosphatase 61 (38-126) IU/L NT-Pro-B Natriuret Pep 324 H (0-125) PG/ML Total Protein 5.2 L (6.1-8.0) g/dL Albumin 2.8 L (3.5-4.8) g/dL Globulin 2.4 L (2.50-4.10) g/dL Albumin/Globulin Ratio 1.10 L (1.3-2.0) mg/g Objective : Exam - General General Appearance: No Acute Distress, Cooperative Additional General Exam Details: Vital Signs - Last Taken Temperature 97.8 F 09/18/16 16:11 Pulse Rate 78 09/18/16 16:11 Respiratory Rate 18 09/18/16 16:11 Blood Pressure 123/61 09/18/16 16:11 Pulse Ox 93 09/18/16 16:11 Currently on room air. - Eye Eye Exam: No Scleral Icterus - Respiratory Respiratory Exam: Breathing Non Labored, Wheezes - Cardiovascular Cardiovascular Exam: RRR, No Murmur, No Clicks, No Gallops, No Rubs, JVD - GI/Abdominal GI/Abdominal Exam: Normal Bowel Sounds, Non Tender, Non Distended, Soft - Extremities Extremities Exam: No Clubbing Present, No Edema Present, No Cyanosis Present - Neurological Neurological Exam: Alert, Oriented x 3, No Facial Droop, Speech Intact / Clear, Moves All Extremities Equally - Psychiatric Psychiatric Exam: Anxious Assessment and Plan - Patient Problems (1) Respiratory insufficiency Current Visit: Yes Status: Acute Comment: Negative stress test reassuring for no coronary artery disease. No calcium in coronary arteries on the study. I think this is all probably bad pneumonia, all in the setting of probable underlying early emphysema. At this point, with pneumonia treated now 2 this month, I think it's worthwhile to try a steroid taper over a longer duration with eventual PFTs as an outpatient. I also think that we need to repeat CT scan in 6 weeks to 8 weeks to make sure that pneumonia is completely resolved as this patient is a smoker and is at risk for lung cancer. I discussed this all with the patient today. (2) Shortness of breath Current Visit: Yes Status: Acute (3) Hypothyroidism Current Visit: Yes Status: Acute Qualifiers: Hypothyroidism type: acquired Qualified Description: Acquired hypothyroidism Qualifier Code(s): (E03.9) Hypothyroidism, unspecified (4) GERD (gastroesophageal reflux disease) Current Visit: Yes Status: Acute (5) Generalized anxiety disorder Current Visit: Yes Status: Acute Comment: I can't tell here is that this is situational because of the hospital stay or if this is something that is existent at baseline. Patient might benefit from anxiolytics and anti-anxiety medication/antidepressants, but he may improve from the standpoint post hospital stay and the situation is different. - Assessment / Plan Additional Assessment/Plan Details: Steroids/Solu-Medrol at high doses. If better tomorrow, may consider discharge on prednisone with a slow taper over about 30 days instead of the typical 10-14 days or so. Eventual outpatient pulmonary function tests. We'll arrange a home nebulizer for home nebulized therapies if desired. Breathing therapies and oxygen as necessary. Anxiety treatment as necessary.
[2016-09-19] MEDS: methylPREDNISolone 125 MG/2 ML VIAL IVP SCH ×3 (00:31→13:36)
[2016-09-19] MEDS: LEVOTHYROXINE 125 MCG TABLET PO SCH (05:56)
[2016-09-19] MEDS: ALBUTEROL SULFATE 2.5 MG/3 ML NEB PRN ×2 (06:44→10:41)
[2016-09-19] MEDS: FLUTICASONE/SALMETEROL 500/50 UD INHALER INH SCH (06:45)
[2016-09-19] MEDS: OMEPRAZOLE 20 MG CAPSULE PO SCH (07:32)
[2016-09-19] MEDS: NORMAL SALINE 10 ML SYRINGE FLUSH IVP PRN ×2 (07:35→13:37)
[2016-09-19] MEDS: ENOXAPARIN SODIUM 40 MG/0.4 ML SYRINGE SUBCUT SCH (09:13)
[2016-09-19 12:41] VITALS: RESP 20; TEMP 98.2
[2016-09-19] MEDS ORDERED: Influenza 16-17 Vaccine(4yrs+) 45 MCG/0.5 ML SYRINGE IM ONE (13:30)
--- NOTE | 2016-09-19 13:51 | DCSUMMARY ---
Hospitalization Summary Admit Date: 09/13/16 Discharge Date: 09/19/16 Primary Diagnosis:: pneumonia, community acquired Secondary Diagnosis:: COPD probably exacerbated. Hospital Course: This very pleasant 61-year-old male who was admitted directly from the clinic with worsening shortness of breath. In addition to dyspnea with exertion, patient also had orthopnea. He was treated for community acquired pneumonia after we were able to rule out pulmonary emboli with a CT scan with contrast. There were bilateral infiltrates noted. They were consistent with prior chest x -ray done earlier this last month. The patient was placed on Levaquin, and again workup was aimed at trying to find any other potential sources of shortness of breath. When his pneumonia improved, his orthopnea persisted, so a stress test was ordered. An echocardiogram was done but it was nonrevealing for pulmonary hypertension. Stress test was negative for reversible defects, and there were no calcifications in the coronary arteries. His wheezing persisted, and we placed him on high-dose steroids through the remainder of the hospital stay and he significantly improved with Solu-Medrol. I spoke with the patient's primary care provider about his situation. We think overall the best course of action would be to continue him on longer term steroids for any reversibility or inflammatory components of COPD/asthma. We advised the patient to quit smoking. We gave him influenza and Pneumovax vaccines prior to discharge. I'll also arrange for a nebulizer at home for nebulized therapies if inhalers do not seem to be working. I think confirmatory pulmonary function tests would be useful, as well as a repeat CT scan to make sure that pneumonia is completely resolved, in particular this patient is in his 60s, still smokes intermittently, and is at risk for lung cancer. Those tests are ordered in the system to occur in 8 weeks but can happen sooner if necessary. Today, the patient feels much better. No shortness of breath today, no chest pain, no nausea or vomiting. He is "ready to go home". Assessment and Plan: 1. As per discharge assessments noted 2. Disposition: Patient is discharged home. 3. Condition on discharge, stable and improved. 4. Diet: regular diet 5. Activities: resume normal activities, but quit smoking 6. Follow-Up: 1. See Dr. Rowe on the as originally scheduled this month. 2. 7. Medications at the Time of Discharge: Home Medications Medication Instructions Recorded Confirmed Type Ascorbate Calcium [Vitamin C] 1 tab PO DAILY tab 07/01/13 09/14/16 History Multivitamin [Multivitamins] 1 tab PO DAILY tab 07/01/13 09/14/16 History Cholecalciferol (Vitamin D3) 2 tab PO QD #60 tab 09/20/14 09/14/16 Clinic [Vitamin D3] Sildenafil Citrate [Viagra] 1 tab PO DAILY PRN #10 tab 09/23/14 09/14/16 Clinic Budesonide/Formoterol Fumarate 2 puff INH BID #1 inh 03/01/15 09/14/16 Clinic [SYMBICORT] Albuterol Sulfate [Proair Hfa] 2 puff INH q 2 hours #1 inhaler 10/24/15 Clinic Levothyroxine Sodium 1 tab PO QD #90 tab 08/20/16 09/14/16 Clinic Omeprazole 1 cap PO QD #90 cap 08/20/16 09/14/16 Clinic Albuterol Neb Soln 0.083% 2.5 mg NEB RTQID PRN #120 vial.neb 09/19/16 Rx predniSONE Tab [Deltasone Tab] 10 mg PO DAILY #200 tab 09/19/16 Rx 8. Time, care, counseling and coordination of care for this discharge is greater than 30 minutes. Exam - Vitals Vital Signs: Vital Signs Temperature 98.2 F Temperature Source Temporal Artery Scan Pulse Rate [Apical] 90 Pulse Rate [Pulse Oximeter] 82 Pulse Rate 96 Respiratory Rate 20 Blood Pressure [Left Arm] 139/83 Pulse Ox 92 Oxygen Flow Rate 2 Oxygen Delivery Method Room Air Height 6 ft Weight 192 lb 6.4 oz - General General Appearance: POSITIVE: No Acute Distress, Cooperative - Head Head Exam: POSITIVE: Atraumatic - Eye Eye Exam: POSITIVE: No Scleral Icterus - Respiratory Respiratory Exam: POSITIVE: Clear to Auscultation - Bilaterally, Breathing Non Labored, Crackles ( right lower base) - Cardiovascular Cardiovascular Exam: POSITIVE: RRR, No Murmur, No Clicks, No Gallops, No Rubs, No JVD - GI/Abdominal GI/Abdominal Exam: POSITIVE: Normal Bowel Sounds, Non Tender, Non Distended, Soft - Extremities Extremities Exam: POSITIVE: No Clubbing Present, No Edema Present, No Cyanosis Present - Neurological Neurological Exam: POSITIVE: Alert, Oriented x 3, No Facial Droop, Speech Intact / Clear, Moves All Extremities Equally Data Perinent Studies: Laboratory Results 09/13/16 09/13/16 09/14/16 Range/Units 14:08 17:19 04:36 WBC 6.74 4.56 L (4.8-10.8) 10^3/uL RBC 5.11 5.02 (4.70-6.10) 10^6/uL Hgb 15.3 14.8 (14.0-18.0) g/dL Hct 45.3 44.0 (42.0-52.0) % MCV 88.6 87.6 (80-90) FL MCH 29.9 29.5 (27-31) PG MCHC 33.8 33.6 (33-37) g/dL RDW Std Deviation 45.6 44.5 (39-50) fL RDW Coeff of Jeana 14.2 14.0 (11.5-14.5) % Plt Count 162 163 (140-350) 10*3/uL MPV 8.8 9.0 (7.4-12.2) FL Immature Gran % (Auto) 0.1 0 (0-5) % Neut % (Auto) 91.6 H 92.3 H (50-80) % Lymph % (Auto) 4.3 L 5.5 L (10-50) % [place] % (Auto) 4.0 L 2.2 L (5-15) % Eos % (Auto) 0 0 (0-8) % Baso % (Auto) 0 0 (0-1) % Immature Gran # (Auto) 0.01 0 10*3/UL Neut # (Auto) 6.17 4.21 10*3/UL Lymph # (Auto) 0.29 0.25 10*3/uL [place] # (Auto) 0.27 L 0.10 L (0.3-0.8) 10*3/UL Eos # (Auto) 0 0 10*3/UL Baso # (Auto) 0 0 10*3/UL WBC Morphology Comment Normal morphology Normal morphology (NORM) Plt Morphology Comment Normal morphology Normal morphology (NORM) RBC Morph Comment Normal morphology Normal morphology (NORM) ABG pH (7.35-7.45) ABG pCO2 (34-38) MMHG ABG pO2 (65-75) MMHG ABG HCO3 (22-26) ABG Total CO2 (23-27) MMOL/L ABG O2 Saturation (90-100) % ABG Base Excess (-2-2) MMOL/L Tim Test VBG pH (7.32-7.42) VBG pCO2 (45-55) mmHg VBG HCO3 (22-26) mmol/L VBG Base Excess (-2-2) MMOL/L FiO2 Sodium 136 137 (135-145) meq/L Potassium 4.5 4.5 (3.8-5.2) meq/L Chloride 98 99 (98-112) meq/L Carbon Dioxide 24 28 (23-33) meq/L Anion Gap 14 10 (5-20) BUN 16 16 (7-22) mg/dL Creatinine 0.9 0.8 (0.70-1.50) mg/dL Estimated GFR > 60 > 60 (>60 ml/min/1.73m(2)) BUN/Creatinine Ratio 17.77 20.00 (6-20) Glucose 140 H 170 H (78-110) mg/dL Calculated Osmolality 284.0 288.0 (267-292) mOsm/kg Lactic Acid 1.5 (0.70-2.10) MMOL/L Calcium 9.8 9.6 (8.7-10.7) mg/dL Total Bilirubin (0.3-1.2) mg/dL AST (21-57) IU/L ALT (21-72) IU/L Alkaline Phosphatase (38-126) IU/L Troponin I (< 0.040) ng/mL NT-Pro-B Natriuret Pep (0-125) PG/ML Total Protein (6.1-8.0) g/dL Albumin (3.5-4.8) g/dL Globulin (2.50-4.10) g/dL Albumin/Globulin Ratio (1.3-2.0) mg/g 09/14/16 09/15/16 09/15/16 Range/Units 14:27 05:16 10:22 WBC 11.61 H (4.8-10.8) 10^3/uL RBC 4.67 L (4.70-6.10) 10^6/uL Hgb 14.4 (14.0-18.0) g/dL Hct 42.0 (42.0-52.0) % MCV 89.9 (80-90) FL MCH 30.8 (27-31) PG MCHC 34.3 (33-37) g/dL RDW Std Deviation 44.9 (39-50) fL RDW Coeff of Jeana 14.1 (11.5-14.5) % Plt Count 181 (140-350) 10*3/uL MPV 9.0 (7.4-12.2) FL Immature Gran % (Auto) 0.1 (0-5) % Neut % (Auto) 92.7 H (50-80) % Lymph % (Auto) 2.8 L (10-50) % [place] % (Auto) 4.4 L (5-15) % Eos % (Auto) 0 (0-8) % Baso % (Auto) 0 (0-1) % Immature Gran # (Auto) 0.01 10*3/UL Neut # (Auto) 10.77 10*3/UL Lymph # (Auto) 0.32 10*3/uL [place] # (Auto) 0.51 (0.3-0.8) 10*3/UL Eos # (Auto) 0 10*3/UL Baso # (Auto) 0 10*3/UL WBC Morphology Comment Normal morphology (NORM) Plt Morphology Comment Normal morphology (NORM) RBC Morph Comment Normal morphology (NORM) ABG pH (7.35-7.45) ABG pCO2 (34-38) MMHG ABG pO2 (65-75) MMHG ABG HCO3 (22-26) ABG Total CO2 (23-27) MMOL/L ABG O2 Saturation (90-100) % ABG Base Excess (-2-2) MMOL/L Tim Test VBG pH 7.46 H (7.32-7.42) VBG pCO2 31 L (45-55) mmHg VBG HCO3 22 (22-26) mmol/L VBG Base Excess -1 (-2-2) MMOL/L FiO2 Sodium 138 (135-145) meq/L Potassium 4.5 (3.8-5.2) meq/L Chloride 100 (98-112) meq/L Carbon Dioxide 26 (23-33) meq/L Anion Gap 12 (5-20) BUN 19 (7-22) mg/dL Creatinine 0.8 (0.70-1.50) mg/dL Estimated GFR > 60 (>60 ml/min/1.73m(2)) BUN/Creatinine Ratio 23.75 H (6-20) Glucose 135 H (78-110) mg/dL Calculated Osmolality 289.0 (267-292) mOsm/kg Lactic Acid (0.70-2.10) MMOL/L Calcium 9.7 (8.7-10.7) mg/dL Total Bilirubin 0.3 (0.3-1.2) mg/dL AST 24 (21-57) IU/L ALT 33 (21-72) IU/L Alkaline Phosphatase 70 (38-126) IU/L Troponin I < 0.012 (< 0.040) ng/mL NT-Pro-B Natriuret Pep (0-125) PG/ML Total Protein 6.2 (6.1-8.0) g/dL Albumin 3.6 (3.5-4.8) g/dL Globulin 2.6 (2.50-4.10) g/dL Albumin/Globulin Ratio 1.30 (1.3-2.0) mg/g 09/16/16 09/17/16 09/17/16 Range/Units 04:45 05:25 06:00 WBC 14.17 H 11.23 H (4.8-10.8) 10^3/uL RBC 4.59 L 4.43 L (4.70-6.10) 10^6/uL Hgb 13.7 L 12.9 L (14.0-18.0) g/dL Hct 40.5 L 40.1 L (42.0-52.0) % MCV 88.2 90.5 H (80-90) FL MCH 29.8 29.1 (27-31) PG MCHC 33.8 32.2 L (33-37) g/dL RDW Std Deviation 44.6 45.8 (39-50) fL RDW Coeff of Jeana 14.1 14.5 (11.5-14.5) % Plt Count 181 175 (140-350) 10*3/uL MPV 8.8 8.6 (7.4-12.2) FL Immature Gran % (Auto) 0.2 0.4 (0-5) % Neut % (Auto) 94.7 H 90.3 H (50-80) % Lymph % (Auto) 2.7 L 4.4 L (10-50) % [place] % (Auto) 2.3 L 4.9 L (5-15) % Eos % (Auto) 0 0 (0-8) % Baso % (Auto) 0.1 0 (0-1) % Immature Gran # (Auto) 0.03 0.04 10*3/UL Neut # (Auto) 13.43 10.15 10*3/UL Lymph # (Auto) 0.38 0.49 10*3/uL [place] # (Auto) 0.32 0.55 (0.3-0.8) 10*3/UL Eos # (Auto) 0 0 10*3/UL Baso # (Auto) 0.01 0 10*3/UL WBC Morphology Comment Normal morphology See comments (NORM) Plt Morphology Comment Normal morphology Normal morphology (NORM) RBC Morph Comment Normal morphology Normal morphology (NORM) ABG pH (7.35-7.45) ABG pCO2 (34-38) MMHG ABG pO2 (65-75) MMHG ABG HCO3 (22-26) ABG Total CO2 (23-27) MMOL/L ABG O2 Saturation (90-100) % ABG Base Excess (-2-2) MMOL/L Tim Test VBG pH (7.32-7.42) VBG pCO2 (45-55) mmHg VBG HCO3 (22-26) mmol/L VBG Base Excess (-2-2) MMOL/L FiO2 Sodium 137 141 (135-145) meq/L Potassium 4.0 4.1 (3.8-5.2) meq/L Chloride 102 104 (98-112) meq/L Carbon Dioxide 25 28 (23-33) meq/L Anion Gap 10 9 (5-20) BUN 20 18 (7-22) mg/dL Creatinine 0.8 0.8 (0.70-1.50) mg/dL Estimated GFR > 60 > 60 (>60 ml/min/1.73m(2)) BUN/Creatinine Ratio 25.00 H 22.50 H (6-20) Glucose 153 H 99 (78-110) mg/dL Calculated Osmolality 289.0 293.0 H (267-292) mOsm/kg Lactic Acid (0.70-2.10) MMOL/L Calcium 9.1 8.8 (8.7-10.7) mg/dL Total Bilirubin 0.3 0.2 L (0.3-1.2) mg/dL AST 28 27 (21-57) IU/L ALT 34 44 (21-72) IU/L Alkaline Phosphatase 71 61 (38-126) IU/L Troponin I (< 0.040) ng/mL NT-Pro-B Natriuret Pep 206 H (0-125) PG/ML Total Protein 5.8 L 5.4 L (6.1-8.0) g/dL Albumin 3.3 L 2.9 L (3.5-4.8) g/dL Globulin 2.5 2.5 (2.50-4.10) g/dL Albumin/Globulin Ratio 1.30 1.10 L (1.3-2.0) mg/g 09/18/16 09/18/16 Range/Units 05:00 11:56 WBC 6.04 (4.8-10.8) 10^3/uL RBC 4.47 L (4.70-6.10) 10^6/uL Hgb 13.1 L (14.0-18.0) g/dL Hct 40.9 L (42.0-52.0) % MCV 91.5 H (80-90) FL MCH 29.3 (27-31) PG MCHC 32.0 L (33-37) g/dL RDW Std Deviation 48.3 (39-50) fL RDW Coeff of Jeana 14.7 H (11.5-14.5) % Plt Count 160 (140-350) 10*3/uL MPV 8.7 (7.4-12.2) FL Immature Gran % (Auto) 0.5 (0-5) % Neut % (Auto) 80.7 H (50-80) % Lymph % (Auto) 10.6 (10-50) % [place] % (Auto) 7.3 (5-15) % Eos % (Auto) 0.7 (0-8) % Baso % (Auto) 0.2 (0-1) % Immature Gran # (Auto) 0.03 10*3/UL Neut # (Auto) 4.88 10*3/UL Lymph # (Auto) 0.64 10*3/uL [place] # (Auto) 0.44 (0.3-0.8) 10*3/UL Eos # (Auto) 0.04 10*3/UL Baso # (Auto) 0.01 10*3/UL WBC Morphology Comment Normal morphology (NORM) Plt Morphology Comment Normal morphology (NORM) RBC Morph Comment Normal morphology (NORM) ABG pH 7.57 H (7.35-7.45) ABG pCO2 29 L (34-38) MMHG ABG pO2 65 (65-75) MMHG ABG HCO3 26 (22-26) ABG Total CO2 27 (23-27) MMOL/L ABG O2 Saturation 95 (90-100) % ABG Base Excess 4 H (-2-2) MMOL/L Tim Test Y VBG pH (7.32-7.42) VBG pCO2 (45-55) mmHg VBG HCO3 (22-26) mmol/L VBG Base Excess (-2-2) MMOL/L FiO2 1.5 n/c Sodium 140 (135-145) meq/L Potassium 4.2 (3.8-5.2) meq/L Chloride 104 (98-112) meq/L Carbon Dioxide 31 (23-33) meq/L Anion Gap 5 (5-20) BUN 22 (7-22) mg/dL Creatinine 0.8 (0.70-1.50) mg/dL Estimated GFR > 60 (>60 ml/min/1.73m(2)) BUN/Creatinine Ratio 27.50 H (6-20) Glucose 86 (78-110) mg/dL Calculated Osmolality 291.0 (267-292) mOsm/kg Lactic Acid (0.70-2.10) MMOL/L Calcium 8.6 L (8.7-10.7) mg/dL Total Bilirubin 0.3 (0.3-1.2) mg/dL AST 26 (21-57) IU/L ALT 44 (21-72) IU/L Alkaline Phosphatase 61 (38-126) IU/L Troponin I (< 0.040) ng/mL NT-Pro-B Natriuret Pep 324 H (0-125) PG/ML Total Protein 5.2 L (6.1-8.0) g/dL Albumin 2.8 L (3.5-4.8) g/dL Globulin 2.4 L (2.50-4.10) g/dL Albumin/Globulin Ratio 1.10 L (1.3-2.0) mg/g Patient Problems - Patient Problem List (1) Community acquired pneumonia Current Visit: Yes Status: Acute (2) COPD exacerbation Current Visit: Yes Status: Acute (3) Respiratory insufficiency Current Visit: Yes Status: Acute (4) Shortness of breath Current Visit: Yes Status: Acute (5) Hypothyroidism Current Visit: Yes Status: Acute Qualifiers: Hypothyroidism type: acquired Qualified Description: Acquired hypothyroidism Qualifier Code(s): (E03.9) Hypothyroidism, unspecified (6) GERD (gastroesophageal reflux disease) Current Visit: Yes Status: Acute Qualifiers: Esophagitis presence: esophagitis presence not specified Qualified Description: Gastroesophageal reflux disease, esophagitis presence not specified Qualifier Code(s): (K21.9) Gastro-esophageal reflux disease without esophagitis (7) Generalized anxiety disorder Current Visit: Yes Status: Acute
== END 2016-09-19 14:53 | disposition home or self-care (01) | DRG 194 ==
LOC: MED/SURG 12:56
PROVIDERS: ADMIT Family Medicine; ATTEND Family Medicine
DX: J18.9 Pneumonia, unspecified organism (principal); J44.1 Chronic obstructive pulmonary disease with (acute) exacerbation; R06.89 Other abnormalities of breathing; R06.02 Shortness of breath; E03.9 Hypothyroidism, unspecified; K21.9 Gastro-esophageal reflux disease without esophagitis; F41.9 Anxiety disorder, unspecified
CPT/HCPCS: 36415; 36600; 71250; 71275; 78452; 80048; 80053; 82803; 83605; 83880; 84484; 85025; 87040; 90673; 90732; 93005; 93010; 93016; 93017; 93018; 93306; 94640; 94761; J1650; J2060

== ENCOUNTER → 2016-11-20 | Outpatient (CLI) | payer BC ==
--- NOTE | 2016-11-20 13:49 | PE ---
[facility] Interpretive Statements [email or web address]
== END ==
LOC: RT 13:29
DX: J45.909 Unspecified asthma, uncomplicated (principal)
CPT/HCPCS: 94060

== ENCOUNTER → 2017-04-11 | Outpatient (CLI) | payer BC ==
--- NOTE | 2017-04-11 16:27 | DI ---
CT CHEST SCAN WITHOUT IV CONTRAST, 04/11/2017 10:11 AM : Clinical History: Pneumonia. COPD. Previous Exam: V CT angiogram of the chest from 09/13/2016, and a noncontrast CT chest from 09/16/2016. Scans are performed from the base of the neck to the lower lung bases without IV contrast. Sagittal a nd coronal images using non MIPS and MIPS technique are generated. The base of the neck and thoracic inlet are normal. There are no abnormal axillary, supraclavicular, or mediastinal nodes. There is pulmonary arterial hypertension and it is difficult to be certain if t here is right hilar adenopathy. There is no definite left hilar adenopathy. The heart is normal. Smal l calcifications are present in the proximal third of the LAD. A new pleural-based patchy density has developed in the anterior segment of the right upper lobe. Patchy densities have developed in both l ower lobes as well. The previously noted densities in the left costophrenic angle in the left lower l obe and in the right middle lobe have increased in size. There is a new mass-like density in the post erior aspect of the lateral segment of the right middle lobe at the junction with the major fissure. The new lesion in the right upper lobe and the densities in both lower lobes are reminiscent of alveo lar cell carcinoma, although the mass-like densities would be somewhat unusual. Another possibility w ould be tumor embolization from a distant source. Noncontrast scans of the liver, spleen, adrenal gla nds, and the pancreas are normal. The gallbladder is contracted but grossly normal. The upper pole of each kidney is visualized and those structures are also normal. READIN. At the site of previous infiltrates in the right middle lobe and left lower lobe are now 2 spheri vicente masses measuring about 4 cm in diameter. There is a new 2.5 cm nodular lesion that abuts the adonis r fissure and this is located in the right middle lobe. 2. There are patchy infiltrates that are pleural-based located in the lower lobes and in the anterio r segment of the right upper lobe, and these have a similar appearance on earlier scans to the locati on of the 2 larger masses. All of these changes may be related to alveolar cell carcinoma although th e large nodules are somewhat unusual for that process. There is no bronchial obstruction. There may b e right hilar adenopathy. 3. Noncontrast scans of the liver, spleen, pancreas, and adrenal glands and the upper poles of each kidney are normal.
== END ==
LOC: CT 10:04
PROVIDERS: ATTEND Family Medicine
DX: J18.9 Pneumonia, unspecified organism (principal); J44.9 Chronic obstructive pulmonary disease, unspecified
CPT/HCPCS: 71250

== ENCOUNTER → 2017-04-11 | Outpatient (CLI) | payer BC ==
[2017-04-12 11:16] LABS: HEP B CORE IGM ANTIBODY Negative (Negative); HEPATITIS A IGM Negative (Negative); HEPATITIS B SURFACE AG Negative (Negative)
== END ==
LOC: LAB 10:08
DX: Z20.5 Contact with and (suspected) exposure to viral hepatitis (principal)
CPT/HCPCS: 36415; 86705; 86709; 86803; 87340